=== PATIENT | female | born 1985 | race Two or more races ===

== ENCOUNTER → 2018-01-22 | Outpatient (CLI) | payer MEDICAID | LOC: FIMAGING 09:06 | PROVIDERS: ATTEND Obstetrics & Gynecology | DX: O99.211 Obesity complicating pregnancy, first trimester (principal); Z3A.12 12 weeks gestation of pregnancy; Z68.38 Body mass index [BMI] 38.0-38.9, adult; Z82.79 Family history of other congenital malformations, deformations and chromosomal abnormalities ==